=== PATIENT | male | born 1975 | race Caucasian/White ===

== ENCOUNTER 2022-09-28 10:58 | Inpatient (IN) ==
[2022-09-28 12:03] LABS: ABS Eosinophils 0.1 10^3/ul (0-0.6); ABS Lymphocytes 2.5 10^3/ul (1.0-4.8); ABS Monocytes 0.5 10^3/ul (0-0.8); ABS Neutrophils 5.7 10^3/ul (1.5-7.7); Eosinophil % 0.9 %; Hematocrit 41 % (42-52); Hemoglobin 14.6 g/dL (14.0-18.0); Lymphocyte % 28.5 %; Mean Corpuscular HGB Conc 35 g/dL (31-36); Mean Corpuscular Hemoglobin 30 pg (27-31); Mean Corpuscular Volume 85 fL (80-94); Mean Platelet Volume 7.8 fL (7.4-10.4); Platelet Count 241 10^3/uL (150-450); Red Blood Count 4.85 10^6 /uL (4.18-5.48); Red Cell Distribution Width 13 % (10-15); White Blood Count 8.9 10^3/uL (3.5-10.8)
[2022-09-28 12:20] LABS: Urine Benzodiazepine Screen None Detected (None Detect); Urine Cannabinoids Screen None Detected (None Detect); Urine Opiates Screen None Detected (None Detect)
[2022-09-28 12:40] LABS: ALT 21 U/L (7-52); AST 13 U/L (13-39); Acetaminophen < 15 mcg/mL; Albumin 4.7 g/dL (3.2-5.2); Albumin/Globulin Ratio 2.5 (1-3); Alcohol, S < 13 mg/dL (<13); Alkaline Phosphatase 65 U/L (35-149); Anion Gap 8 mmol/L (2-11); Blood Urea Nitrogen 16 mg/dL (6-24); CO2 Carbon Dioxide 30 mmol/L (22-32); Calcium 9.3 mg/dL (8.6-10.3); Chloride 102 mmol/L (101-111); Globulin 1.9 g/dL (2-4); Glucose 95 mg/dL (70-100); Potassium 4.1 mmol/L (3.5-5.0); Salicylate < 2.50 mg/dL (<30); Sodium 140 mmol/L (135-145); Total Protein 6.6 g/dL (6.4-8.9); eGFR CKD-EPI 87.2 (>60)
[2022-09-28 12:52] LABS: TSH Ultra Thyroid Stim Horm 1.77 mcIU/mL (0.34-5.60)
[2022-09-28] MEDS ORDERED: Al Hydrox/Mg Hydrox/Simet LIQ 30 ML UDC PO PRN (14:52)
[2022-09-28] MEDS: Nicotine Lozenge mini 2 MG LOZNG.MINI MT PRN (16:38)
[2022-09-29] MEDS: Vitamin THERAPEUTIC TAB PO SCH (07:34)
[2022-09-29] MEDS: Nicotine PATCH 14 MG/24 HR PATCH TRANSDERM SCH ×2 (07:34→12:01)
[2022-09-29 08:45] LABS: HDL Cholesterol 39.8 mg/dL
[2022-09-29] MEDS: Nicotine Lozenge mini 2 MG LOZNG.MINI MT PRN (17:10)
[2022-09-30] MEDS: Nicotine Lozenge mini 2 MG LOZNG.MINI MT PRN ×2 (07:11→18:56)
[2022-09-30] MEDS: buPROPion SR 100 mg TAB.SR PO SCH (08:52)
[2022-09-30] MEDS: Vitamin THERAPEUTIC TAB PO SCH (08:52)
[2022-09-30] MEDS: Nicotine PATCH 14 MG/24 HR PATCH TRANSDERM SCH (08:52)
[2022-09-30] MEDS: Lamotrigine XR 200 mg TAB (NF) PO SCH (08:53)
[2022-09-30] MEDS: LAMOTRIGINE 50 MG PO SCH ×2 (08:55→16:31)
[2022-10-01] MEDS: buPROPion SR 100 mg TAB.SR PO SCH (07:38)
[2022-10-01] MEDS: Vitamin THERAPEUTIC TAB PO SCH (07:38)
[2022-10-01] MEDS: LAMOTRIGINE 50 MG PO SCH (07:39)
[2022-10-01] MEDS: Lamotrigine XR 200 mg TAB (NF) PO SCH (07:39)
[2022-10-01 08:53] VITALS: BP 149/75
[2022-10-01] MEDS: Nicotine PATCH 14 MG/24 HR PATCH TRANSDERM SCH (09:04)
[2022-10-02] MEDS ORDERED: LAMOTRIGINE 50 MG PO SCH (09:00)
[2022-10-02] MEDS ORDERED: CMCS:Lamotrigine XR 200 mg TAB (NF) PO SCH (09:00)
== END 2022-10-01 11:35 | disposition home or self-care (01) | DRG 753 ==
LOC: ED 10:58 → BSU 15:18
PROVIDERS: ADMIT Psychiatry & Neurology Psychiatry; ATTEND Psychiatry & Neurology Psychiatry